=== PATIENT | male | born 1980 | race African-American/Black ===

== ENCOUNTER 2016-10-14 16:42 | Observation (INO) | payer OTHER ==
[~2016-10-14] VITALS: Ht 172.7 cm; Wt 86.2 kg
[~2016-10-14 16:42] MED LIST: LEVSIN/SL0.125 MG SL; LOMOTIL 0.025 M1 TAB PO; MOTRIN 600 MG600 MG PO; PRILOSEC OTC20 MG PO; ZOFRAN4 M1 SL
--- NOTE | 2016-10-14 18:55 | ED SKIN/ALLERGY COMPLAINT ---
History of Present Illness General Chief Complaint: Skin Rash/ Abcess Stated Complaint: SIB WALK-IN ABCESS IN GROIN Source: patient Exam Limitations: no limitations Vital Signs & Intake/Output Vital Signs & Intake/Output Vital Signs Date Time Temp Pulse Resp B/P B/P Pulse O2 O2 Flow FiO2 Mean Ox Delivery Rate 10/14 2054 97.6 77 20 121/81 98 Room Air 10/14 1930 97.8 80 20 122/69 96 Room Air 10/14 1718 98.9 86 15 139/87 100 Room Air Allergies Coded Allergies: NO KNOWN ALLERGIES (07/13/15) Reconcile Medications No Known Home Medications Triage Note: PT SIB WCC FOR ABSCESS TO GROIN, PT ALSO STATING "SINCE IM HERE CAN WE SEE IF I HAVE A KIDNEY STONE" PT OFFERING NO COMPLAINTS OF BACK PAIN, ABD PAIN OR N/V. Triage Nurses Notes Reviewed? yes Onset: Abrupt Duration: day(s): (FEW), constant, continues in ED Timing: recent history Severity: moderate, severe No Modifying Factors: none HPI: 36-year-old male comes into emergency room with complaints of swelling and pain to below his left scrotal region. Patient seen at the walk-in clinic and recommended coming here in the emergency room for further evaluation. Denies any urinary symptoms. Admits to shooting here. Denies any fever chills. Denies any vomiting. Denies any other associated symptoms. (LUIS FELIPE ROQUE) Past History Travel History Traveled to [place] past 21 day No Medical History Any Pertinent Medical History? 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 No (LUIS FELIPE ROQUE) Review of Systems Review of Systems Constitutional: Reports: no symptoms. EENTM: Reports: no symptoms. Respiratory: Reports: no symptoms. Cardiovascular: Reports: no symptoms. GI: Reports: no symptoms. Genitourinary: Reports: no symptoms. Musculoskeletal: Reports: no symptoms. Skin: Reports: see HPI. Neurological/Psychological: Reports: no symptoms. Hematologic/Endocrine: Reports: no symptoms. Immunologic/Allergic: Reports: no symptoms. All Other Systems: Reviewed and Negative (LUIS FELIPE ROQUE) Physical Exam Physical Exam General Appearance: well developed/nourished, mild distress Head: atraumatic Eyes: Bilateral: normal appearance. Ears, Nose, Throat: normal ENT inspection, hearing grossly normal Neck: normal inspection Respiratory: no respiratory distress Cardiovascular: regular rate/rhythm Rectal: SWELLING AND TENDERNESS BELOW THE LEFT SCROTAL SAC EXTENDING UP INTO HIS SCROTUM, INDURATED,, NO PALPABLE ABSCESS ON TESTICLE ITSELF, Back: normal inspection Extremities: normal inspection, normal range of motion, no edema Neurologic/Psych: awake, alert, oriented x 3, normal mood/affect Lymphatic: no anterior cervical galina (LUIS FELIPE ROQUE) Progress Differential Diagnosis: abscess/cellulitis, allergic reaction, anaphylaxis, contact dermatitis, drug reaction, erythema multiforme, lyme disease Plan of Care: Orders Procedure Date/time Status Nothing by Mouth 10/15 B Active Pathway - chart 10/14 2213 Active Patient Data 10/14 2213 Active Code Status 10/[address] in observation 10/14 2204 Active BLOOD CULTURE 10/14 2050 Active TYPE & SCREEN (NOT X-MATCH) 10/14 2050 Complete URINALYSIS 10/14 1853 Complete COMPREHENSIVE METABOLIC PANEL 10/14 185 Complete CBC WITHOUT DIFFERENTIAL 10/14 1853 Complete Intake & Output 10/14 1847 Active VTE Mechanical Prophylaxis 10/14 UNK Active Vital Signs 10/14 UNK Active Activity/Ambulation 10/14 UNK Active Current Medications Sig/Vipul Start time Last Medication Dose Stop Time Status Admin Ampicillin Sodium/ 1,500 MG Q6 10/15 0600 AC Sulbactam Sodium (Unasyn) Sodium Chloride 100 ML (Normal Saline 0.9%) Dextrose/Sodium 1,000 ML .Q20H 10/14 2214 AC 10/14 Chloride 2307 (D5-Normal Saline) Ibuprofen 600 MG Q6P PRN 10/14 2214 AC (Motrin) Morphine Sulfate 4 MG Q 3-4 HRS PRN PRN 10/14 2214 AC (Morphine) Ondansetron HCl 4 MG Q8P PRN 10/14 2214 AC (Zofran) Oxycodone HCl 5 MG Q4 HRS NEEDED PRN 10/14 2214 AC 10/14 (Roxicodone) 2257 Oxycodone HCl 10 MG Q4 HRS NEEDED PRN 10/14 2214 AC (Roxicodone) Laboratory Tests 10/14/161909: Anion Gap 10, Estimated GFR > 60, BUN/Creatinine Ratio 12.7, Glucose 97, Calcium 9.3, Total Bilirubin 0.4, AST 26, ALT 31, Alkaline Phosphatase 101, Total Protein 7.3, Albumin 4.0, Globulin 3.3, Albumin/Globulin Ratio 1.2, CBC w Diff NO MAN DIFF REQ, RBC 4.89, MCV 86.8, MCH 28.5, RDW 15.4 H, MPV 7.2 L, Gran % 75.4 H, Lymphocytes % 16.3 L, Monocytes % 7.3, Eosinophils % 0.8, Basophils % 0.2, Absolute Granulocytes 9.9 H, Absolute Lymphocytes 2.1, Absolute Monocytes 1.0 H, Absolute Eosinophils 0.1, Absolute Basophils 0, PUBS MCHC 32.8 L 10/14/161904: Urine Color YEL, Urine Clarity CLEAR, Urine pH 6.0, Ur Specific [place] >= 1.030 , Urine Protein TRACE H, Urine Ketones NEG, Urine Nitrite NEG, Urine Bilirubin NEG, Urine Urobilinogen 1.0, Ur Leukocyte Esterase NEG, Ur Microscopic SEDIMENT EXAMINED, Urine Bacteria FEW H, Urine Mucus MOD H, Urine Hemoglobin NEG, Urine Glucose NEG 10/14/16 171: Sodium Cancelled, Potassium Cancelled, Chloride Cancelled, Carbon Dioxide Cancelled, Anion Gap Cancelled, BUN Cancelled, Creatinine Cancelled, BUN/ Creatinine Ratio Cancelled, Glucose Cancelled, Calcium Cancelled, Total Bilirubin Cancelled, AST Cancelled, ALT Cancelled, Alkaline Phosphatase Cancelled, Total Protein Cancelled, Albumin Cancelled, Globulin Cancelled, Albumin/Globulin Ratio Cancelled, CBC w Diff Cancelled, WBC Cancelled, RBC Cancelled, Hgb Cancelled, Hct Cancelled, MCV Cancelled, MCH Cancelled, RDW Cancelled, Plt Count Cancelled, MPV Cancelled, PUBS MCHC Cancelled Microbiology 10/15 2151 BLOOD: Blood Culture - RECD 10/14 2134 BLOOD: Blood Culture - RECD Diagnostic Imaging: Viewed by Me: Ultrasound. Discussed w/RAD: Ultrasound. Radiology Impression: EXAM TYPE: US - US-TESTICULAR EXAMINATION: US SCROTUM CLINICAL INFORMATION: Swelling. Concern for abscess in the perineum. COMPARISON: None TECHNIQUE: A sonogram of the scrotum was performed assessing sinha-scale appearance and color Doppler flow. FINDINGS: RIGHT: Right testicle measures 4.3 x 1.9 x 3.1 cm, volume 15.8 mL. Parenchymal echotexture is normal. No focal testicular parenchymal lesions are visualized. Normal symmetric intratesticular flow is visualized. Right epididymal head is normal in size. No right hydrocele or varicocele is seen. LEFT: Left testicle measures 3.9 x 2.2 x 2.6 cm, volume 18 mL. Parenchymal echotexture is normal. No focal testicular parenchymal lesions are visualized. Normal symmetric intratesticular flow is visualized. Left epididymal head is normal in size. No left hydrocele or varicocele is seen. Targeted ultrasound performed at the perineum in the area of swelling. Just deep to the skin line is a region of ill-defined hypoechoic collection with edema in the surrounding soft tissues. This collection measures 4.9 x 0.9 x 1.5 cm. This is consistent with an abscess. IMPRESSION: 1. Normal ultrasound of scrotum. 2. Perineal abscess. This abscess could be further assessed with MRI of the perineum to evaluate the origin of the abscess in relation to the anus and rectum. DICTATED BY: ELMIRA FONTENOT MD DATE/TIME DICTATED:10/14/161956 VIDEO PRODUCTION ENGINEER:ROXANNE DATE/TIME TRANSCRIBED:10/14/161956, SERVICE DATE : 10/14/16 EXAM TYPE: CAT - CT PELVIS W IV CONTRAST EXAMINATION: CT PELVIS WITH IV CONTRAST CLINICAL INFORMATION: Prior rectal abscess. Assess. COMPARISON: Testicular ultrasound today. CT scan abdomen pelvis 07/14/2015 TECHNIQUE: Helical scanning was performed with submillimeter collimation through the pelvis with 95 mL of Optiray 320 intravenous contrast. Sagittal and coronal multiplanar 2-D reconstructions were obtained. DLP: 371.21 mGy-cm FINDINGS: The peroneal abscess seen on the ultrasound exam today is to left of midline. Extends to the anal verge and does not extend intrapelvic. There is a small fluid collection which extends from the base of the left scrotum at the perineum measuring 1.5 x 2 x 2 cm. The induration now extends posteriorly along the gluteal fold in the subcutaneous tissue to the anal verge. No intrapelvic inflammation. The intrapelvic bowel loops visualized are normal. The appendix is normal. The intrapelvic fat planes are normal. No hernia. IMPRESSION: Perineal abscess to the left of midline extends to the anal verge but does not extend intrapelvic. DICTATED BY: ELMIRA FONTENOT MD DATE/TIME DICTATED:10/14/162136 VIDEO PRODUCTION ENGINEER :ROXANNE DATE/TIME TRANSCRIBED:10/14/162136 CONFIDENTIAL, DO NOT COPY WITHOUT APPROPRI (LUIS FELIPE ROQUE) Departure Departure Disposition: STILL A PATIENT Condition: Stable Clinical Impression Primary Impression: Perirectal abscess Referrals: PATIENT HAS NO PRIMARY CARE DR (PCP/Family) Departure Forms: Customer Survey General Discharge Information Prescriptions: Current Visit Scripts No Known Home Medications Observation Note Spoke With: VALENTE CLARK MD Physician Advisor Notified: MARIE BAUER MD Place Patient In: Non-ED OBS Care Area Rationale for Observation: My rational for observation is as follows . IV antibiotics. Patient will require OR tomorrow for a perirectal abscess. Pain control. (LUIS FELIPE ROQUE) PA/WAFER POLISHING WORKER Co-Sign Statement Statement: ED Attending supervision documentation- [] I saw and evaluated the patient. I have also reviewed all the pertinent lab results and diagnostic results. I agree with the findings and the plan of care as documented in the PA's/WAFER POLISHING WORKER's documentation. [X] I have reviewed the ED Record and agree with the PA's/WAFER POLISHING WORKER's documentation. [] Additions or exceptions (if any) to the PAs/WAFER POLISHING WORKER's note and plan are summarized below: [] (MARIE BAUER MD)
[2016-10-14 19:23] LABS: ABSOLUTE BASOPHIL COUNT 0 /CUMM (0.0-0.2); ABSOLUTE EOSINOPHIL COUNT 0.1 /CUMM (0.0-0.7); ABSOLUTE GRANULOCYTE CT 9.9 /CUMM (1.4-6.5); ABSOLUTE LYMPH COUNT 2.1 /CUMM (1.2-3.4); BASOPHIL % 0.2 % (0.0-2.0); EOSINOPHIL % 0.8 % (0-5); GRANULOCYTE % 75.4 % (42.2-75.2); HEMATOCRIT 42.4 % (42-52); MEAN CORPUSCULAR HGB 28.5 PG (27.0-31.0); MEAN CORPUSCULAR HGB CONC 32.8 G/DL (33.0-37.0); MEAN CORPUSCULAR VOLUME 86.8 FL (80.0-94.0); MEAN PLATELET VOLUME 7.2 FL (7.4-10.4); PLATELET COUNT 354 /CUMM (130-400); RBC DISTRIBUTION WIDTH 15.4 % (11.5-14.5); RED BLOOD CELL CT 4.89 /CUMM (4.70-6.10); WHITE BLOOD CELL COUNT 13.1 /CUMM (4.8-10.8)
--- NOTE | 2016-10-14 20:21 | ULTRASOUND REPORT ---
EXAMINATION: US SCROTUM CLINICAL INFORMATION: Swelling. Concern for abscess in the perineum. COMPARISON: None TECHNIQUE: A sonogram of the scrotum was performed assessing sinha-scale appearance and color Doppler flow. FINDINGS: RIGHT: Right testicle measures 4.3 x 1.9 x 3.1 cm, volume 15.8 mL. Parenchymal echotexture is normal. No focal testicular parenchymal lesions are visualized. Normal symmetric intratesticular flow is visualized. Right epididymal head is normal in size. No right hydrocele or varicocele is seen. LEFT: Left testicle measures 3.9 x 2.2 x 2.6 cm, volume 18 mL. Parenchymal echotexture is normal. No focal testicular parenchymal lesions are visualized. Normal symmetric intratesticular flow is visualized. Left epididymal head is normal in size. No left hydrocele or varicocele is seen. Targeted ultrasound performed at the perineum in the area of swelling. Just deep to the skin line is a region of ill-defined hypoechoic collection with edema in the surrounding soft tissues. This collection measures 4.9 x 0.9 x 1.5 cm. This is consistent with an abscess. IMPRESSION: 1. Normal ultrasound of scrotum. 2. Perineal abscess. This abscess could be further assessed with MRI of the perineum to evaluate the origin of the abscess in relation to the anus and rectum.
--- NOTE | 2016-10-14 21:56 | CT SCAN REPORT ---
EXAMINATION: CT PELVIS WITH IV CONTRAST CLINICAL INFORMATION: Prior rectal abscess. Assess. COMPARISON: Testicular ultrasound today. CT scan abdomen pelvis 07/14/2015 TECHNIQUE: Helical scanning was performed with submillimeter collimation through the pelvis with 95 mL of Optiray 320 intravenous contrast. Sagittal and coronal multiplanar 2-D reconstructions were obtained. DLP: 371.21 mGy-cm FINDINGS: The peroneal abscess seen on the ultrasound exam today is to left of midline. Extends to the anal verge and does not extend intrapelvic. There is a small fluid collection which extends from the base of the left scrotum at the perineum measuring 1.5 x 2 x 2 cm. The induration now extends posteriorly along the gluteal fold in the subcutaneous tissue to the anal verge. No intrapelvic inflammation. The intrapelvic bowel loops visualized are normal. The appendix is normal. The intrapelvic fat planes are normal. No hernia. IMPRESSION: Perineal abscess to the left of midline extends to the anal verge but does not extend intrapelvic.
--- NOTE | 2016-10-14 22:10 | History & Physical ---
DEBORAH GOTTI PA-C 10/14/16 2154: General Information and HPI MD Statement: I have seen and personally examined YOLANDA KEARNS and documented this H& P. The patient is a 36 year old M who presented with a patient stated chief complaint of [pain in the left buttock and left scrotal area]. History of Present Illness: 36-year-old male presents emergency Department with complaints of pain and swelling to the left groin scrotal region and left buttocks. This started around 1 week ago in the left medial distal buttocks region and has spread into the scrotal region over the last 2 days. He believes he had a tactile fever earlier today. He was seen at an urgent care center initially today and was sent to the emergency room for further evaluation. While in the emergency department he received an ultrasound which showed an abscess and a follow-up CT scan as well. Patient's pain is severe, it is worse with palpation, he has difficulty sitting. He states there is a small amount of purulence that discharged earlier today from the wound. There has been no treatment thus far. He was seen by the emergency room staff and surgery was consulted for further management. 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 Comments Review of systems: See HPI, all other systems negative. Constitutional: See HPI HEENT: No visual changes no sore throat no congestion Cardiovascular: No chest pain ,palpitation , orthopnea or ankle swelling Skin: See HPI Respiratory: No dyspnea cough sputum or hemoptysis GI: No nausea no vomiting : No dysuria no hematuria Musclulo skeletal: No back pain no neck pain, Neurologic: No numbness no confusion Psych: No stress anxiety or depression,. Heme/endocrine: No bruising no bleeding no polyuria or polydipsia Immunology: No splenectomy or history of AIDS Exam & Diagnostic Data Last 24 Hrs of Vital Signs/I&O Vital Signs Date Time Temp Pulse Resp B/P B/P Pulse O2 O2 Flow FiO2 Mean Ox Delivery Rate 10/14 2054 97.6 77 20 121/81 98 Room Air 10/14 1929 97.8 80 20 122/69 96 Room Air 10/14 1718 98.9 86 15 139/87 100 Room Air Body Front and Back (Adult) 1) [place] of abscess Last 24 Hrs of Labs/Abdullahi: Well-developed well-nourished person in no acute distress HEENT: Normal EENT exam, extraocular motion intact, no nystagmus. Pupils equally round and reactive to light. Nose is atraumatic. Pharynx normal. No swelling or edema. Neck: Supple, no lymphadenopathy, normal range of motion without pain or tenderness Back: Nontender, no CVA tenderness. Full range of motion Cardiovascular: Regular rate and rhythms no murmurs, normal JVP Respiratory: Chest nontender. No respiratory distress. Breath sounds clear to auscultation bilaterally Abdomen: Soft, nontender nondistended, no appreciable organomegaly. Normal bowel sounds. No ascites Extremity: No edema, no calf tenderness to palpation, normal and equal pulses. Neuro: Alert oriented x3, motor sensory normal, cranial nerves II through XII grossly intact. Skin: Mildly pale appearing, No appreciable rash on exposed skin, skin is warm and dry. Psych: Mood and affect is normal, memory and judgment is normal Male and rectal area: To the left side distal medial buttock near the gluteal fold there is a approximate 4 x 4 centimeter area of induration and erythema with pinhole area of purulent drainage. This erythema and induration extends anterior into the perineal area to the scrotum on the left side. It is moderate to severely tender throughout. There is no gas or subcutaneous air palpated. There is no abscess on in the perirectal area. Laboratory Tests 10/14/161909: Anion Gap 10, Estimated GFR > 60, BUN/Creatinine Ratio 12.7, Glucose 97, Calcium 9.3, Total Bilirubin 0.4, AST 26, ALT 31, Alkaline Phosphatase 101, Total Protein 7.3, Albumin 4.0, Globulin 3.3, Albumin/Globulin Ratio 1.2, CBC w Diff NO MAN DIFF REQ, RBC 4.89, MCV 86.8, MCH 28.5, RDW 15.4 H, MPV 7.2 L, Gran % 75.4 H, Lymphocytes % 16.3 L, Monocytes % 7.3, Eosinophils % 0.8, Basophils % 0.2, Absolute Granulocytes 9.9 H, Absolute Lymphocytes 2.1, Absolute Monocytes 1.0 H, Absolute Eosinophils 0.1, Absolute Basophils 0, PUBS MCHC 32.8 L 10/14/161904: Urine Color YEL, Urine Clarity CLEAR, Urine pH 6.0, Ur Specific [place] >= 1.030 , Urine Protein TRACE H, Urine Ketones NEG, Urine Nitrite NEG, Urine Bilirubin NEG, Urine Urobilinogen 1.0, Ur Leukocyte Esterase NEG, Ur Microscopic SEDIMENT EXAMINED, Urine Bacteria FEW H, Urine Mucus MOD H, Urine Hemoglobin NEG, Urine Glucose NEG 10/14/16 171: Sodium Cancelled, Potassium Cancelled, Chloride Cancelled, Carbon Dioxide Cancelled, Anion Gap Cancelled, BUN Cancelled, Creatinine Cancelled, BUN/ Creatinine Ratio Cancelled, Glucose Cancelled, Calcium Cancelled, Total Bilirubin Cancelled, AST Cancelled, ALT Cancelled, Alkaline Phosphatase Cancelled, Total Protein Cancelled, Albumin Cancelled, Globulin Cancelled, Albumin/Globulin Ratio Cancelled, CBC w Diff Cancelled, WBC Cancelled, RBC Cancelled, Hgb Cancelled, Hct Cancelled, MCV Cancelled, MCH Cancelled, RDW Cancelled, Plt Count Cancelled, MPV Cancelled, PUBS MCHC Cancelled Microbiology 10/15 2151 BLOOD: Blood Culture - RECD 10/14 2134 BLOOD: Blood Culture - RECD Diagnostic Data Other Results PATIENT: YOLANDA KEARNS PRESENT AGE: 36 PATIENT ACCOUNT NO: [id number] : 82 LOCATION: [facility] ORDERING PHYSICIAN: LUIS FELIPE SORIANO SERVICE DATE: 10/14/16 EXAM TYPE: US - US-TESTICULAR EXAMINATION: US SCROTUM CLINICAL INFORMATION: Swelling. Concern for abscess in the perineum. COMPARISON: None TECHNIQUE: A sonogram of the scrotum was performed assessing sinha-scale appearance and color Doppler flow. FINDINGS: RIGHT: Right testicle measures 4.3 x 1.9 x 3.1 cm, volume 15.8 mL. Parenchymal echotexture is normal. No focal testicular parenchymal lesions are visualized. Normal symmetric intratesticular flow is visualized. Right epididymal head is normal in size. No right hydrocele or varicocele is seen. LEFT: Left testicle measures 3.9 x 2.2 x 2.6 cm, volume 18 mL. Parenchymal echotexture is normal. No focal testicular parenchymal lesions are visualized. Normal symmetric intratesticular flow is visualized. Left epididymal head is normal in size. No left hydrocele or varicocele is seen. Targeted ultrasound performed at the perineum in the area of swelling. Just deep to the skin line is a region of ill-defined hypoechoic collection with edema in the surrounding soft tissues. This collection measures 4.9 x 0.9 x 1.5 cm. This is consistent with an abscess. IMPRESSION: 1. Normal ultrasound of scrotum. 2. Perineal abscess. This abscess could be further assessed with MRI of the perineum to evaluate the origin of the abscess in relation to the anus and rectum. DICTATED BY: ELMIRA FONTENOT MD DATE/TIME DICTATED:10/14/161956 LOCOMOTIVE ENGINEER:ROXANNE PATIENT: YOLANDA KEARNS PRESENT AGE: 36 PATIENT ACCOUNT NO: [id number] : 82 LOCATION: [facility] ORDERING PHYSICIAN: LUIS FELIPE SORIANO SERVICE DATE: 10/14/16 EXAM TYPE: CAT - CT PELVIS W IV CONTRAST EXAMINATION: CT PELVIS WITH IV CONTRAST CLINICAL INFORMATION: Prior rectal abscess. Assess. COMPARISON: Testicular ultrasound today. CT scan abdomen pelvis 07/14/2015 TECHNIQUE: Helical scanning was performed with submillimeter collimation through the pelvis with 95 mL of Optiray 320 intravenous contrast. Sagittal and coronal multiplanar 2-D reconstructions were obtained. DLP: 371.21 mGy-cm FINDINGS: The peroneal abscess seen on the ultrasound exam today is to left of midline. Extends to the anal verge and does not extend intrapelvic. There is a small fluid collection which extends from the base of the left scrotum at the perineum measuring 1.5 x 2 x 2 cm. The induration now extends posteriorly along the gluteal fold in the subcutaneous tissue to the anal verge. No intrapelvic inflammation. The intrapelvic bowel loops visualized are normal. The appendix is normal. The intrapelvic fat planes are normal. No hernia. IMPRESSION: Perineal abscess to the left of midline extends to the anal verge but does not extend intrapelvic. DICTATED BY: ELMIRA FONTENOT MD DATE/TIME DICTATED:10/14/162136 LOCOMOTIVE ENGINEER:ROXANNE DATE/TIME TRANSCRIBED:10/14/162136 Assessment/Plan Assessment: Perineal abscess Patient requires incision and drainage in the operating room. He is not septic or acutely ill at this time. There is no sign of necrotizing fasciitis/Ruel 's gangrene. He will receive IV antibiotics which have been started in the emergency department, IV Unasyn 3 g every 6 hours and we are planning to perform an incision and drainage in the operating room tomorrow. Obtain cultures at that time. Regular diet for now, nothing by mouth after midnight, IV fluids, pain medication, states that Tylenol upsets his stomach and will place him on OxyIR and Motrin and morphine for breakthrough pain IV. Patient understands and agrees with plan, discussed with Dr. Clark. As Ranked By This Provider Problem List: 1. Perineal abscess Core Measures/Miscellaneous Acute Coronary Syndrome ACS Diagnosis: No Cerebrovascular Accident CVA/TIA Diagnosis: No Congestive Heart Failure CHF Diagnosis: No Venous Thromboembolism VTE Risk Factors: No Risk Factors [facility] prophylaxis d/t: No contraindications No VTE Pharm Prophylaxis d/t: VTE low risk VTE Diagnosis: No VTE Type: NONE VTE Confirmed by (Test): NONE Severe Sepsis Severe Sepsis Present: No Septic Shock Septic Shock Present: No Miscellaneous Documentation Attending Case Discussed With: Romeo Primary Care Physician: PATIENT HAS NO PRIMARY CARE DR Patient sees these Specialists none Level of Patient Care: General Surgical VALENTE CLARK MD 10/15/16 1040: Attending Review Statement Attending Statement Attending MD Statement: examined this patient, discuss w/resident/PA/TRAINING GENERALIST, reviewed images Attending Assessment/Plan: Relatively healthy 36-year-old male presents with progressive infectious process tracking from the anus to the peritoneum and scrotum. Likely represents a perirectal abscess with possible fistula. Plan will be to bring him to the operating room under general anesthesia to drainage and identify the fistula. IV antibiotics will be initiated in the interim.
--- NOTE | 2016-10-14 22:18 | Admission Core Measures ---
Admission Lab Results I reviewed the following labs: Laboratory Tests 10/14 10/14 1910 1905 Chemistry Sodium (137 - 145 mmol/L) 137 Potassium (3.5 - 5.1 mmol/L) 3.7 Chloride (98 - 107 mmol/L) 102 Carbon Dioxide (22 - 30 mmol/L) 26 Anion Gap (5 - 16) 10 BUN (9 - 20 mg/dL) 14 Creatinine (0.7 - 1.2 mg/dL) 1.1 Estimated GFR (>60 ml/min) > 60 BUN/Creatinine Ratio (7 - 25 %) 12.7 Glucose (65 - 99 mg/dL) 97 Calcium (8.4 - 10.2 mg/dL) 9.3 Total Bilirubin (0.2 - 1.3 mg/dL) 0.4 AST (17 - 59 U/L) 26 ALT (21 - 72 U/L) 31 Alkaline Phosphatase (< 127 U/L) 101 Total Protein (6.3 - 8.2 g/dL) 7.3 Albumin (3.5 - 5.0 g/dL) 4.0 Globulin (1.9 - 4.2 gm/dL) 3.3 Albumin/Globulin Ratio (1.1 - 2.2 %) 1.2 Hematology CBC w Diff NO MAN DIFF REQ WBC (4.8 - 10.8 /CUMM) 13.1 H RBC (4.70 - 6.10 /CUMM) 4.89 Hgb (14.0 - 18.0 G/DL) 13.9 L Hct (42 - 52 %) 42.4 MCV (80.0 - 94.0 FL) 86.8 MCH (27.0 - 31.0 PG) 28.5 RDW (11.5 - 14.5 %) 15.4 H Plt Count (130 - 400 /CUMM) 354 MPV (7.4 - 10.4 FL) 7.2 L Gran % (42.2 - 75.2 %) 75.4 H Lymphocytes % (20.5 - 51.1 %) 16.3 L Monocytes % (1.7 - 9.3 %) 7.3 Eosinophils % (0 - 5 %) 0.8 Basophils % (0.0 - 2.0 %) 0.2 Absolute Granulocytes (1.4 - 6.5 /CUMM) 9.9 H Absolute Lymphocytes (1.2 - 3.4 /CUMM) 2.1 Absolute Monocytes (0.10 - 0.60 /CUMM) 1.0 H Absolute Eosinophils (0.0 - 0.7 /CUMM) 0.1 Absolute Basophils (0.0 - 0.2 /CUMM) 0 PUBS MCHC (33.0 - 37.0 G/DL) 32.8 L Urines Urine Color (YEL,AMB,STR) YEL Urine Clarity (CLEAR) CLEAR Urine pH (5.0 - 8.0) 6.0 Ur Specific [place] (1.001 - 1.035) >= 1.030 Urine Protein (NEG,<30 MG/DL) TRACE H Urine Ketones (NEG) NEG Urine Nitrite (NEG) NEG Urine Bilirubin (NEG) NEG Urine Urobilinogen (0.1 - 1.0 EU/dl) 1.0 Ur Leukocyte Esterase (NEG) NEG Ur Microscopic SEDIMENT EXAMINED Urine Bacteria (NEG/NONE) FEW H Urine Mucus (FEW,NONE) MOD H Urine Hemoglobin (NEG) NEG Urine Glucose (N MG/DL) NEG 10/14 1712 Chemistry Sodium Cancelled Potassium Cancelled Chloride Cancelled Carbon Dioxide Cancelled Anion Gap Cancelled BUN Cancelled Creatinine Cancelled BUN/Creatinine Ratio Cancelled Glucose Cancelled Calcium Cancelled Total Bilirubin Cancelled AST Cancelled ALT Cancelled Alkaline Phosphatase Cancelled Total Protein Cancelled Albumin Cancelled Globulin Cancelled Albumin/Globulin Ratio Cancelled Hematology CBC w Diff Cancelled WBC Cancelled RBC Cancelled Hgb Cancelled Hct Cancelled MCV Cancelled MCH Cancelled RDW Cancelled Plt Count Cancelled MPV Cancelled PUBS MCHC Cancelled Admission Meds I reviewed the following Meds: Current Medications Sig/Vipul Start time Last Medication Dose Stop Time Status Admin Ampicillin Sodium/ 1,500 MG Q6 10/15 0600 UNVr Sulbactam Sodium (Unasyn) Sodium Chloride 100 ML (Normal Saline 0.9%) Ampicillin Sodium/ 3,000 MG ONCE ONE 10/14 2199 AC 10/14 Sulbactam Sodium 10/14 (Unasyn) Sodium Chloride 100 ML (Normal Saline 0.9%) Dextrose/Sodium 1,000 ML .Q20H 10/14 2214 UNVr Chloride (D5-Normal Saline) Ibuprofen 600 MG Q6P PRN 10/14 2214 UNVr (Motrin) Morphine Sulfate 4 MG Q 3-4 HRS PRN PRN 10/14 2215 AC (Morphine) Ondansetron HCl 4 MG Q8P PRN 10/14 2215 AC (Zofran) Oxycodone HCl 5 MG Q4 HRS NEEDED PRN 10/14 2215 AC (Roxicodone) Oxycodone HCl 10 MG Q4 HRS NEEDED PRN 10/14 2215 AC (Roxicodone) Acute Coronary Syndrome Inclusion Criteria ACS Diagnosis No Inpatient Core Measures LDL Reminder: If No, please order W/I first 24hr of stay Congestive Heart Failure Inclusion Criteria CHF Diagnosis No Cerebrovascular accident Inclusion Criteria CVA/TIA Diagnosis No Inpatient Core Measures Bedside Swallow Eval Reminder: If BSE failed, place ST order Antithrombotic Reminder: Order Antithrombotic Medication by end of day 2 Antithrombotic Reminder: Document Reason Antithrombotic Not ordered by end of day 2 AFIB/Flutter Reminder: If Present, add to problem list AFIB/Flutter Reminder: Order Anticoag Medication for pts with AFIB/Flutter Atherosclerosis Reminder: If Present, add to problem list LDL Reminder: If No, please order W/I first 24hr of stay PT Order Reminder: If No, please order Venous thromboembolism Inpatient Core Measures VTE Risk Factors: No Risk Factors No [facility] prophylaxis d/t No contraindications No VTE Pharm Prophylaxis d/t VTE low risk Inclusion Criteria - Per Current guidelines, there needs to be overlap - treatment for the first 5 days of Warfarin therapy. - Parenteral Anticoagulation (IV or SC) needs to be - given along with Warfarin therapy. VTE Diagnosis No VTE Type NONE VTE Confirmed by (Test) NONE Problem List As ranked by this Provider includes Assessment & Plan 1. Perineal abscess HOME MEDS Home Med List No Known Home Medications
[2016-10-14 23:43] VITALS: BP 144/86
[2016-10-15 06:37] VITALS: BP 114/82
--- NOTE | 2016-10-15 08:00 | PN- General Surgery ---
Subjective Subjective: Complains of pain and perineal region. Thirsty. No fevers or chills. No chest pain or shortness of breath Objective Vital Signs and I&Os Vital Signs Date Time Temp Pulse Resp B/P B/P Pulse O2 O2 Flow FiO2 Mean Ox Delivery Rate 10/15 0637 98.1 69 18 114/82 96 Room Air 10/14 2343 98.5 93 20 144/86 98 Room Air 10/14 2055 97.6 77 20 121/81 98 Room Air 10/14 1930 97.8 80 20 122/69 96 Room Air 10/14 1718 98.9 86 15 139/87 100 Room Air Intake & Output 10/15 0800 10/15 0000 10/14 1600 10/14 0800 10/14 0000 10/13 1600 Intake Total Output Total Balance Patient 190 lb 192 lb Weight Weight Estimated Reported by Patient Measurement Method Physical Exam: Gen.: NAD Cardiac: S1-S2 RRR Pulmonary: CTA B Abdomen: Soft, nontender, nondistended Anorectal/groin: Small palpable indurated area left of scrotum, tender to palpation, warm to touch, slightly erythematous Extremities: Calves soft nontender bilaterally Current Medications: Current Medications Sig/Vipul Start time Last Medication Dose Route Stop Time Status Admin Ampicillin Sodium/ 1,500 MG Q6 10/15 06 AC 10/15 Sulbactam Sodium IV 0638 Sodium Chloride 100 ML Ampicillin Sodium/ 0 .STK-MED ONE 10/14 2206 DC Sulbactam Sodium .ROUTE Ampicillin Sodium/ 3,000 MG ONCE ONE 10/14 2199 DC 10/14 Sulbactam Sodium IV 10/14 2228 2209 Sodium Chloride 100 ML Dextrose/Sodium 1,000 ML .Q20H 10/14 2214 AC 10/14 Chloride IV 2307 Ibuprofen 600 MG Q6P PRN 10/14 2214 AC PO Morphine Sulfate 4 MG Q 3-4 HRS PRN PRN 10/14 2214 AC 10/15 IV 30 Ondansetron HCl 0 .STK-MED ONE 10/14 2246 DC .ROUTE Ondansetron HCl 4 MG Q8P PRN 10/14 2214 AC IV Oxycodone HCl 0 .STK-MED ONE 10/15 2247 DC PO Oxycodone HCl 5 MG Q4 HRS NEEDED PRN 10/14 2214 AC 10/14 PO 2258 Oxycodone HCl 10 MG Q4 HRS NEEDED PRN 10/14 2215 AC 10/15 PO 0646 Results Last 48 Hours of Labs: Laboratory Tests 10/14 10/14 1910 1905 Chemistry Sodium (137 - 145 mmol/L) 137 Potassium (3.5 - 5.1 mmol/L) 3.7 Chloride (98 - 107 mmol/L) 102 Carbon Dioxide (22 - 30 mmol/L) 26 Anion Gap (5 - 16) 10 BUN (9 - 20 mg/dL) 14 Creatinine (0.7 - 1.2 mg/dL) 1.1 Estimated GFR (>60 ml/min) > 60 BUN/Creatinine Ratio (7 - 25 %) 12.7 Glucose (65 - 99 mg/dL) 97 Calcium (8.4 - 10.2 mg/dL) 9.3 Total Bilirubin (0.2 - 1.3 mg/dL) 0.4 AST (17 - 59 U/L) 26 ALT (21 - 72 U/L) 31 Alkaline Phosphatase (< 127 U/L) 101 Total Protein (6.3 - 8.2 g/dL) 7.3 Albumin (3.5 - 5.0 g/dL) 4.0 Globulin (1.9 - 4.2 gm/dL) 3.3 Albumin/Globulin Ratio (1.1 - 2.2 %) 1.2 Hematology CBC w Diff NO MAN DIFF REQ WBC (4.8 - 10.8 /CUMM) 13.1 H RBC (4.70 - 6.10 /CUMM) 4.89 Hgb (14.0 - 18.0 G/DL) 13.9 L Hct (42 - 52 %) 42.4 MCV (80.0 - 94.0 FL) 86.8 MCH (27.0 - 31.0 PG) 28.5 RDW (11.5 - 14.5 %) 15.4 H Plt Count (130 - 400 /CUMM) 354 MPV (7.4 - 10.4 FL) 7.2 L Gran % (42.2 - 75.2 %) 75.4 H Lymphocytes % (20.5 - 51.1 %) 16.3 L Monocytes % (1.7 - 9.3 %) 7.3 Eosinophils % (0 - 5 %) 0.8 Basophils % (0.0 - 2.0 %) 0.2 Absolute Granulocytes (1.4 - 6.5 /CUMM) 9.9 H Absolute Lymphocytes (1.2 - 3.4 /CUMM) 2.1 Absolute Monocytes (0.10 - 0.60 /CUMM) 1.0 H Absolute Eosinophils (0.0 - 0.7 /CUMM) 0.1 Absolute Basophils (0.0 - 0.2 /CUMM) 0 PUBS MCHC (33.0 - 37.0 G/DL) 32.8 L Urines Urine Color (YEL,AMB,STR) YEL Urine Clarity (CLEAR) CLEAR Urine pH (5.0 - 8.0) 6.0 Ur Specific [place] (1.001 - 1.035) >= 1.030 Urine Protein (NEG,<30 MG/DL) TRACE H Urine Ketones (NEG) NEG Urine Nitrite (NEG) NEG Urine Bilirubin (NEG) NEG Urine Urobilinogen (0.1 - 1.0 EU/dl) 1.0 Ur Leukocyte Esterase (NEG) NEG Ur Microscopic SEDIMENT EXAMINED Urine Bacteria (NEG/NONE) FEW H Urine Mucus (FEW,NONE) MOD H Urine Hemoglobin (NEG) NEG Urine Glucose (N MG/DL) NEG 10/14 1712 Chemistry Sodium Cancelled Potassium Cancelled Chloride Cancelled Carbon Dioxide Cancelled Anion Gap Cancelled BUN Cancelled Creatinine Cancelled BUN/Creatinine Ratio Cancelled Glucose Cancelled Calcium Cancelled Total Bilirubin Cancelled AST Cancelled ALT Cancelled Alkaline Phosphatase Cancelled Total Protein Cancelled Albumin Cancelled Globulin Cancelled Albumin/Globulin Ratio Cancelled Hematology CBC w Diff Cancelled WBC Cancelled RBC Cancelled Hgb Cancelled Hct Cancelled MCV Cancelled MCH Cancelled RDW Cancelled Plt Count Cancelled MPV Cancelled PUBS MCHC Cancelled Assessment/Plan Assessment/Plan A: 36M with perineal abscess, mild leukocytosis, currently stable. P: On-call to the OR today for I&D. Continue antibiotics. Continue nothing by mouth and IV fluids. Will discuss with attending. Core Measures/Miscellaneous Venous Thromboembolism VTE Risk Factors: Acute medical illness VTE Contraindications: No Contraindications VTE Diagnosis: No VTE Type: NONE VTE Confirmed by (Test): NONE Beta Rama Is Beta Rama a Home Med? No Antibiotics Is Patient on Antibiotics? Yes
--- NOTE | 2016-10-15 11:24 | Operative Report ---
Operative/Inv Procedure Report Surgery Date: 10/15/16 Name of Procedure: Incision and drainage of multiple perineal/perirectal abscesses Pre-Operative Diagnosis: Perirectal abscess Post-Operative Diagnosis: Perianal hidradenitis Estimated Blood Loss: scant Surgeon/Film Archivist: EDUARDO FIGUEROA,VALENTE Eckert/Digna SORIANO Anesthesia: laryngeal mask airway Microbiology: Pus for Culture Operative/Procedure Note Note: Patient brought to the operating room and laid supine. Gen. anesthesia was obtained and he was placed in lithotomy position. Perianal and scrotal tissues were prepped and draped. Digital rectal examination was unrevealing. Rigid proctoscopy was normal. There were multiple abscess cavities and tracts on both sides of the anus as well as in the perineum into the left of the hemiscrotum. They all appeared to be separate and all arising from the subcutaneous/skin tissues. It appeared to be hidradenitis complex. Incision and drainages of all the abscesses were performed. All had sinus tracts that emanated in different directions, none of which appeared to track towards the perirectal tissues. 4 different incision and drainages were performed, all of them had sinus tracts and all of them had 2 incisions made one proximally and distally. The tracts were curetted. Hemostasis achieved with cautery and direct pressure. Bacitracin ointment was applied and sterile dressings applied.
[2016-10-15] MEDS ORDERED: PERCOCET 5-3251 EACH PO (11:42)
[2016-10-15] MEDS ORDERED: AUGMENTIN 875-1 EACH PO ×2 (11:43→15:32)
--- NOTE | 2016-10-15 11:51 | Patient Discharge Instructions ---
Discharge Instructions General Discharge Information You were seen/treated for: Perirectal abscess You had these procedures: Incision and Drainage of perirectal abscesses Watch for these problems: Worsening pain, worsening drainage, fevers, chills Other wound care: Expect drainage from wounds. Change dressing daily or more frequently if needed. Soak area in tub (sitz baths) 2-3x per day. Take stool softeners as needed. Take pain medications as needed. Diet Continue normal diet: Yes Activity Activity Self Limited: Yes Acute Coronary Syndrome Inclusion Criteria At DC or during hospital stay patient has or had the following: ACS DIAGNOSIS No Discharge Core Measures Meds if any: Prescribed or Continued at Discharge Meds if any: NOT Prescribed or Continued at Discharge Congestive Heart Failure Inclusion Criteria At DC or during hospital stay patient has or had the following: CHF DIAGNOSIS No Discharge Core Measures Meds if any: Prescribed or Continued at Discharge Meds if any: NOT Prescribed or Continued at Discharge Cerebrovascular accident Inclusion Criteria At DC or during hospital stay patient has or had the following: CVA/TIA Diagnosis No Discharge Core Measures Meds if any: Prescribed or Continued at Discharge Meds if any: NOT Prescribed or Continued at Discharge Venous thromboembolism Inclusion Criteria VTE Diagnosis No VTE Type NONE VTE Confirmed by (Test) NONE Discharge Core Measures - Per Current guidelines, there needs to be overlap - treatment for the first 5 days of Warfarin therapy. - If discharged on Warfarin prior to 5 days of - overlap therapy, the patient will need to be - assessed for post discharge needs including - *Post discharge parental anticoagulation - *Warfarin and/or parental anticoagulation education - *Follow up date to check INR post discharge At least 5 days overlap therapy as Inpatient No Meds if any: Prescribed or Continued at Discharge Note: Overlap Therapy is Warfarin and Anticoagulant Meds if any: NOT Prescribed or Continued at Discharge
--- NOTE | 2016-10-15 11:57 | Surg Short-stay <48hrs Dis Sum ---
Visit Information Visit Dates Admission Date: 10/14/16 Discharge Date: 10/15/16 Surgical Short Stay DC Summary Admission Diagnosis: Perirectal abscess Final Diagnosis: Perianal hidradenitis Procedure(s): Incision and drainage of multiple perineal/perirectal abscesses Summary/Significant Findings: 36yoM presented to ED 10/14/16 with perirectal pain. Examined and found to have multiple perianal collections. Medicated with IV antibiotics and brought to the OR on 10/15/[address] Walters for incision and drainage of multiple perineal/ perirectal abscesses. Procedure went well without complications. Recovered and is now tolerating regular diet and pain is controlled with PO pain medications. He is stable for DC home. Condition at Discharge: stable Discharge Disposition: home or self care Discharge instructions provided to patient/family: Yes Post discharge follow-up plan: Contact Dr. Walters's office to schedule a follow-up appointment to be seen in 1-[address] Walters's office with any worsening symptoms, questions or concerns.
[2016-10-15 14:00] VITALS: BP 118/68
[2016-10-15] MEDS ORDERED: ROXICODONE5 M1 PO (15:32)
[2016-10-15] MEDS ORDERED: COLACE100 M1 PO (15:32)
--- NOTE | 2016-10-15 15:36 | PN- General Surgery ---
Subjective Subjective: POST-OP NOTE: Reports expected discomfort. Occasional nausea, but drinking without difficulty. Voided after surgery. Eager to go home. Denies dizziness. No shortness of breath. No chest pains. Objective Vital Signs and I&Os Vital Signs Date Time Temp Pulse Resp B/P B/P Pulse O2 O2 Flow FiO2 Mean Ox Delivery Rate 10/15 1400 98.0 62 18 118/68 94 Room Air 10/15 0637 98.1 69 18 114/82 96 Room Air 10/14 2343 98.5 93 20 144/86 98 Room Air 10/14 2055 97.6 77 20 121/81 98 Room Air 10/14 1930 97.8 80 20 122/69 96 Room Air 10/14 1718 98.9 86 15 139/87 100 Room Air Intake & Output 10/15 1600 10/15 0810/15 0000 10/14 1600 10/14 0800 10/14 0000 Intake Total 450 Output Total 1 Balance 449 Intake, IV 450 Output, Urine 1 Patient 190 lb 190 lb Weight Weight Estimated Reported by Patient Measurement Method Physical Exam: General - alert & oriented x 3. comfortable. no acute distress. Lungs - clear bilaterally. no w/r/r. Cardiac - s1s2. reg. Abdomen - soft. nontender. Dressing c/d/i. Extremities - warm bilaterally. no c/c/e. calves soft and nontender b/l. Current Medications: Current Medications Sig/Vipul Start time Last Medication Dose Route Stop Time Status Admin Ampicillin Sodium/ 1,500 MG Q6 10/15 1200 AC Sulbactam Sodium IV Sodium Chloride 100 ML Ampicillin Sodium/ 1,500 MG Q6 10/15 0600 DC 10/15 Sulbactam Sodium IV 0638 Sodium Chloride 100 ML Ampicillin Sodium/ 0 .STK-MED ONE 10/14 2206 DC Sulbactam Sodium .ROUTE Ampicillin Sodium/ 3,000 MG ONCE ONE 10/14 2199 DC 10/14 Sulbactam Sodium IV 10/14 2228 220 Sodium Chloride 100 ML Dextrose/Sodium 1,000 ML .Q10H 10/15 1130 AC Chloride IV Dextrose/Sodium 1,000 ML .Q10H 10/14 2214 DC 30 Chloride IV 2307 Ibuprofen 600 MG Q6P PRN 10/15 1130 AC PO Ibuprofen 600 MG Q6P PRN 10/14 2215 DC PO Morphine Sulfate 4 MG Q 3-4 HRS PRN PRN 10/15 1130 AC IV Morphine Sulfate 10 MG .STK-MED ONE 10/15 0223 DC IM 10/15 0224 Morphine Sulfate 4 MG Q 3-4 HRS PRN PRN 10/14 2215 DC 10/15 IV 0830 Ondansetron HCl 4 MG Q8P PRN 10/15 1130 AC IV Ondansetron HCl 0 .STK-MED ONE 10/14 2247 DC .ROUTE Ondansetron HCl 4 MG Q8P PRN 10/14 221 DC IV Oxycodone HCl 5 MG Q4 HRS NEEDED PRN 10/15 1130 AC PO Oxycodone HCl 10 MG Q4 HRS NEEDED PRN 10/15 1130 AC PO Oxycodone HCl 10 MG .STK-MED ONE 10/15 0258 DC PO 10/15 0259 Oxycodone HCl 0 .STK-MED ONE 10/14 2248 DC PO Oxycodone HCl 5 MG Q4 HRS NEEDED PRN 10/14 221 DC 10/14 PO 2258 Oxycodone HCl 10 MG Q4 HRS NEEDED PRN 10/14 221 DC 10/15 PO 0646 Results Last 48 Hours of Labs: Laboratory Tests 10/14 10/14 1910 1905 Chemistry Sodium (137 - 145 mmol/L) 137 Potassium (3.5 - 5.1 mmol/L) 3.7 Chloride (98 - 107 mmol/L) 102 Carbon Dioxide (22 - 30 mmol/L) 26 Anion Gap (5 - 16) 10 BUN (9 - 20 mg/dL) 14 Creatinine (0.7 - 1.2 mg/dL) 1.1 Estimated GFR (>60 ml/min) > 60 BUN/Creatinine Ratio (7 - 25 %) 12.7 Glucose (65 - 99 mg/dL) 97 Calcium (8.4 - 10.2 mg/dL) 9.3 Total Bilirubin (0.2 - 1.3 mg/dL) 0.4 AST (17 - 59 U/L) 26 ALT (21 - 72 U/L) 31 Alkaline Phosphatase (< 127 U/L) 101 Total Protein (6.3 - 8.2 g/dL) 7.3 Albumin (3.5 - 5.0 g/dL) 4.0 Globulin (1.9 - 4.2 gm/dL) 3.3 Albumin/Globulin Ratio (1.1 - 2.2 %) 1.2 Hematology CBC w Diff NO MAN DIFF REQ WBC (4.8 - 10.8 /CUMM) 13.1 H RBC (4.70 - 6.10 /CUMM) 4.89 Hgb (14.0 - 18.0 G/DL) 13.9 L Hct (42 - 52 %) 42.4 MCV (80.0 - 94.0 FL) 86.8 MCH (27.0 - 31.0 PG) 28.5 RDW (11.5 - 14.5 %) 15.4 H Plt Count (130 - 400 /CUMM) 354 MPV (7.4 - 10.4 FL) 7.2 L Gran % (42.2 - 75.2 %) 75.4 H Lymphocytes % (20.5 - 51.1 %) 16.3 L Monocytes % (1.7 - 9.3 %) 7.3 Eosinophils % (0 - 5 %) 0.8 Basophils % (0.0 - 2.0 %) 0.2 Absolute Granulocytes (1.4 - 6.5 /CUMM) 9.9 H Absolute Lymphocytes (1.2 - 3.4 /CUMM) 2.1 Absolute Monocytes (0.10 - 0.60 /CUMM) 1.0 H Absolute Eosinophils (0.0 - 0.7 /CUMM) 0.1 Absolute Basophils (0.0 - 0.2 /CUMM) 0 PUBS MCHC (33.0 - 37.0 G/DL) 32.8 L Urines Urine Color (YEL,AMB,STR) YEL Urine Clarity (CLEAR) CLEAR Urine pH (5.0 - 8.0) 6.0 Ur Specific [place] (1.001 - 1.035) >= 1.030 Urine Protein (NEG,<30 MG/DL) TRACE H Urine Ketones (NEG) NEG Urine Nitrite (NEG) NEG Urine Bilirubin (NEG) NEG Urine Urobilinogen (0.1 - 1.0 EU/dl) 1.0 Ur Leukocyte Esterase (NEG) NEG Ur Microscopic SEDIMENT EXAMINED Urine Bacteria (NEG/NONE) FEW H Urine Mucus (FEW,NONE) MOD H Urine Hemoglobin (NEG) NEG Urine Glucose (N MG/DL) NEG 05/30 1712 Chemistry Sodium Cancelled Potassium Cancelled Chloride Cancelled Carbon Dioxide Cancelled Anion Gap Cancelled BUN Cancelled Creatinine Cancelled BUN/Creatinine Ratio Cancelled Glucose Cancelled Calcium Cancelled Total Bilirubin Cancelled AST Cancelled ALT Cancelled Alkaline Phosphatase Cancelled Total Protein Cancelled Albumin Cancelled Globulin Cancelled Albumin/Globulin Ratio Cancelled Hematology CBC w Diff Cancelled WBC Cancelled RBC Cancelled Hgb Cancelled Hct Cancelled MCV Cancelled MCH Cancelled RDW Cancelled Plt Count Cancelled MPV Cancelled PUBS MCHC Cancelled Assessment/Plan Assessment/Plan This 36 year old male is POD#0 s/op Incision and drainage of multiple perineal/ perirectal abscesses advance diet as tolerated pain control as ordered continue augmentin x 10 more days local wound care. dressing changes daily. follow up with in 3-5 days d/c home Core Measures/Miscellaneous Venous Thromboembolism VTE Risk Factors: Acute medical illness VTE Contraindications: No Contraindications VTE Diagnosis: No VTE Type: NONE VTE Confirmed by (Test): NONE Beta Rama Is Beta Rama a Home Med? No Antibiotics Is Patient on Antibiotics? Yes
== END 2016-10-15 16:00 ==
LOC: ERH 16:42 → ERHI 22:05 → 2NB 22:05 → ENRESERV 23:16 → 2NB 23:18
PROVIDERS: Physician Assistant Medical; ADMIT Surgery
DX: L02.215 Cutaneous abscess of perineum (principal); D72.829 Elevated white blood cell count, unspecified
CPT/HCPCS: 6040; 87070; 87075; 81001; 87040; 87147; 96365; 96375; 96376; G0378; J0131; J1100; J2270; J2405; J7042

== ENCOUNTER 2017-12-23 23:34 | Emergency (ER) | payer OTHER ==
[~2017-12-23] VITALS: Ht 172.7 cm; Wt 95.3 kg
[~2017-12-23 23:34] MED LIST changes: +AUGMENTIN 875-1 EACH PO; +COLACE100 M1 PO; +PERCOCET 5-3251 EACH PO; +ROXICODONE5 M1 PO
[2017-12-24 03:10] LABS: ABSOLUTE BASOPHIL COUNT 0.1 /CUMM (0.0-0.2); ABSOLUTE EOSINOPHIL COUNT 0.3 /CUMM (0.0-0.7); ABSOLUTE GRANULOCYTE CT 7.1 /CUMM (1.4-6.5); ABSOLUTE LYMPH COUNT 2.4 /CUMM (1.2-3.4); ABSOLUTE MONOCYTE COUNT 0.8 /CUMM (0.10-0.60); BASOPHIL % 0.5 % (0.0-2.0); EOSINOPHIL % 2.7 % (0-5); GRANULOCYTE % 66.5 % (42.2-75.2); HEMATOCRIT 39.8 % (42-52); MEAN CORPUSCULAR HGB CONC 33.5 G/DL (33.0-37.0); MEAN CORPUSCULAR VOLUME 86.6 FL (80.0-94.0); PLATELET COUNT 438 /CUMM (130-400); RBC DISTRIBUTION WIDTH 14.6 % (11.5-14.5); WHITE BLOOD CELL COUNT 10.7 /CUMM (4.8-10.8)
--- NOTE | 2017-12-24 03:48 | ED GI/GU/ABDOMINAL COMPLAINT ---
History of Present Illness General Chief Complaint: General Adult Stated Complaint: " I'M HAVING A PROBLEM W/MY KIDNEY STONES" X'S COM Source: patient, old records Exam Limitations: no limitations Vital Signs & Intake/Output Vital Signs & Intake/Output Vital Signs Date Time Temp Pulse Resp B/P B/P Pulse O2 O2 Flow FiO2 Mean Ox Delivery Rate 12/24 0301 98.4 70 18 125/74 96 12/23 2349 96.0 96 20 121/80 98 Room Air ED Intake and Output 12/24 0000 12/23 1200 Intake Total Output Total Balance Patient 210 lb Weight Weight Reported by Patient Measurement Method Allergies Coded Allergies: NO KNOWN ALLERGIES (07/13/15) Reconcile Medications Ibuprofen 600 MG TABLET 1 TAB PO Q6P PRN pain with food Oxycodone HCl/Acetaminophen (Percocet 5-325 MG Tablet) 5 MG-325 MG TABLET 1 TAB PO Q6H PRN severe pain Tamsulosin HCl (Flomax) 0.4 MG CAP.ER.24H 1 CAP PO DAILY kidney stone Tamsulosin HCl (Flomax) 0.4 MG CAP.ER.24H 1 CAP PO DAILY kidney stone Triage Note: PT HERE WITH C/O LEFT THIGH ABCESS AND LEFT FLANK PAIN. PT REPORTS "I HAVE KIDNEY STONES". PT REPORTS PAIN BEGAN X 1 WEEK. DENIES ANY URINARY SYMPTOMS. Triage Nurses Notes Reviewed? yes Onset: Last week Duration: day(s):, changing over time, continues in ED, intermittent Timing: recent history Quality/Severity: moderate, sharpness Location: left flank Radiation: no radiation Activities at Onset: rest Prior Abdominal Problems: similar symptoms Past Sexual History: Unobtainable at this time No Modifying Factors: none Associated Symptoms: abdominal pain HPI: 1 week prior to admission patient complains of episodic left flank pain described as sharp moderate severe similar to previous kidney stone pain nonradiating. He denies fever chills nausea vomiting diarrhea chest pain cough shortness of breath headache dysuria rash bleeding. He also complains of recurrent perineal abscess that was I and D last year. Past History Travel History Traveled to [place] past 21 day No Medical History Any Pertinent Medical History? see below for history Neurological: NONE EENT: NONE Cardiovascular: NONE Respiratory: NONE Gastrointestinal: NONE Hepatic: NONE Renal: nephrolithiasis Musculoskeletal: NONE Psychiatric: NONE Endocrine: NONE Blood Disorders: NONE Cancer(s): NONE DIRECTOR OF MUSIC/Reproductive: NONE Surgical History Surgical History: cyst removal coccyx region Abscess I&D, right groin Psychosocial History Services at Home None What is your primary language [place] Tobacco Use: Never used ETOH Use: denies use Illicit Drug Use: denies illicit drug use Family History Hx Contributory? No Review of Systems Review of Systems Constitutional: Reports: no symptoms. EENTM: Reports: no symptoms. Respiratory: Reports: no symptoms. Cardiovascular: Reports: no symptoms. GI: Reports: see HPI, abdominal pain. Genitourinary: Reports: see HPI, pain. Musculoskeletal: Reports: no symptoms. Skin: Reports: no symptoms. Neurological/Psychological: Reports: no symptoms. Hematologic/Endocrine: Reports: no symptoms. Immunologic/Allergic: Reports: no symptoms. All Other Systems: Reviewed and Negative Physical Exam Physical Exam General Appearance: well developed/nourished, alert, awake, anxious, mild distress, obese Head: atraumatic, normal appearance Eyes: Bilateral: normal appearance, PERRL, EOMI, normal inspection. Ears, Nose, Throat, Mouth: hearing grossly normal, moist mucous membrane Neck: normal inspection, supple, full range of motion, normal alignment Respiratory: normal breath sounds, chest non-tender, no respiratory distress, quiet respiration, lungs clear Cardiovascular: regular rate/rhythm, normal peripheral pulses, norml femoral pulses equa Peripheral Pulses: 4+ carotid (R), 4+ carotid (L) Gastrointestinal: normal bowel sounds, soft, non-tender, no organomegaly Male Genitals: normal genitalia Back: normal inspection, normal range of motion Extremities: normal range of motion, no ligament instability Neurologic/Psych: no motor/sensory deficits, awake, alert Skin: intact, normal color Core Measures ACS in differential dx? No Sepsis Present: No Sepsis Focused Exam Completed? No Progress Differential Diagnosis: diverticulitis, gastritis, ureterolithiasis Plan of Care: Orders Procedure Date/time Status URINALYSIS 12/25 211 Complete COMPREHENSIVE METABOLIC PANEL 12/25 211 Complete CBC WITHOUT DIFFERENTIAL 12/25 211 Complete Laboratory Tests 12/24/17 0259: Urine Color YEL, Urine Clarity CLEAR, Urine pH 6.0, Ur Specific [place] >= 1.030 , Urine Protein NEG, Urine Ketones TRACE H, Urine Nitrite NEG, Urine Bilirubin NEG, Urine Urobilinogen 1.0, Ur Leukocyte Esterase NEG, Ur Microscopic EXAM NOT REQUIRED, Urine Hemoglobin NEG, Urine Glucose NEG 12/24/17 0255: Anion Gap 8, Estimated GFR > 60, BUN/Creatinine Ratio 13.3, Glucose 101 H, Calcium 8.9, Total Bilirubin 0.1 L, AST 27, ALT 26, Alkaline Phosphatase 116, Total Protein 7.1, Albumin 3.5, Globulin 3.6, Albumin/Globulin Ratio 1.0 L, CBC w Diff NO MAN DIFF REQ, RBC 4.60 L, MCV 86.6, MCH 29.0, MCHC 33.5, RDW 14.6 H, MPV 7.0 L, Gran % 66.5, Lymphocytes % 22.4, Monocytes % 7.9, Eosinophils % 2.7, Basophils % 0.5, Absolute Granulocytes 7.1 H, Absolute Lymphocytes 2.4, Absolute Monocytes 0.8 H, Absolute Eosinophils 0.3, Absolute Basophils 0.1 Initial ED EKG: none Departure Departure Time of Disposition: 633 Disposition: HOME OR SELF CARE Condition: Stable Clinical Impression Primary Impression: Renal colic on left side Referrals: Genaro Ramires MD Additional Instructions: Call for urology follow up Departure Forms: Customer Survey General Discharge Information Prescriptions: Current Visit Scripts Ibuprofen 1 TAB PO Q6P PRN pain #50 TAB with food Tamsulosin HCl (Flomax) 1 CAP PO DAILY #15 CAP Oxycodone HCl/Acetaminophen (Percocet 5-325 MG Tablet) 1 TAB PO Q6H PRN severe pain #15 TAB Tamsulosin HCl (Flomax) 1 CAP PO DAILY #15 CAP
[2017-12-24] MEDS ORDERED: FLOMAX0.4 M1 PO (06:38)
[2017-12-24] MEDS ORDERED: PERCOCET 5-3251 EACH PO (06:38)
[2017-12-24] MEDS ORDERED: IBUPROFEN600 M1 PO (06:38)
[2017-12-24 07:09] VITALS: BP 149/89
== END 2017-12-24 07:11 ==
LOC: ERH 23:34
PROVIDERS: Emergency Medicine
DX: N23 Unspecified renal colic (principal)
CPT/HCPCS: 81003; 96361; 96374; J1885